=== PATIENT | male | born 1970 | race Caucasian/White ===

== ENCOUNTER 2019-07-04 23:04 | Emergency (ER) | payer BC ==
[~2019-07-04] VITALS: Ht 177.8 cm; Wt 101.2 kg
[2019-07-04 23:13] VITALS: Ht 177.8 cm; Wt 101.2 kg
[2019-07-05 00:39] LABS: microscopic required? NO
[2019-07-05 01:14] LABS: urine erythrocyte NEGATIVE (NEGATIVE)
[2019-07-05 01:19] LABS: BASOPHIL % 0.3 % (0-2); PLATELET COUNT 180 x10^3mcL (130-400); RED CELL DISTRIBUTION WIDTH 14.5 % (11.5-14.5)
[2019-07-05 01:34] LABS: CALCIUM 8.1 mg/dL (8.5-10.1); CARBON DIOXIDE 28.8 mmol/L (21-32); CHLORIDE SERUM 106 mmol/L (98-107); GFR1 > 60 mL/min; GLUCOSE SERUM 120 mg/dL (74-106); SODIUM SERUM 140 mmol/L (136-145)
[2019-07-05 01:38] LABS: ALKALINE PHOSPHATASE 72 U/L (46-116); ALT/SGPT 49 U/L (16-63); AST/SGOT 22 U/L (15-37); BILIRUBIN TOTAL 0.27 mg/dL (0.20-1.00); TOTAL PROTEIN, SERUM 6.8 g/dL (6.4-8.2)
[2019-07-05 01:42] LABS: ALBUMIN 3.1 g/dL (3.4-5.0)
[2019-07-05 02:02] VITALS: BP 144/82
== END 2019-07-05 02:02 | disposition home or self-care (01) ==
LOC: ED 23:04
PROVIDERS: Emergency Medicine
DX: J40 Bronchitis, not specified as acute or chronic (principal); E87.6 Hypokalemia
CPT/HCPCS: 87804; Q0092